=== PATIENT | female | born 1970 | race Caucasian/White ===

== ENCOUNTER 2018-12-17 15:20 | Emergency (ER) | payer SELFPAY ==
[2018-12-17 15:21] VITALS: BP 118/82; PULSE 100; RESP 16; TEMP 36.4; BMI 31.1
--- NOTE | 2018-12-17 15:40 | ED.DEP ---
ED Disposition - Plan for ED Patient: Instructions: ED Bite Tick Abx Tx Prescriptions: Doxycycline 100 mg PO BID #28 capsule Referrals: Nick Roper MD [Primary Care Provider] -
--- NOTE | 2018-12-17 15:43 | ED.VISSUMM ---
- ER Visit Summary Date of Service: 12/17/18 Chief Complaint: Tick bite History of Present Illness: The patient is a 48 F presenting after tick bite. She believes this occurred on Sunday. She states she was mushroom hunting. She later noted a tick on her right shoulder. This was removed. She also noticed a red area right lateral chest wall. She tried squeezing and had no nothing come out. Denies fever or other complaints. Physical Examination: Vitals are stable. Patient is afebrile. Alert no acute distress. HEENT exam is unremarkable. Neck is supple. Lungs are clear and equal bilaterally. Right lateral chest wall small hematoma with surrounding redness. No foreign body palpated. No break in skin Heart is regular rate and rhythm. Extremities right anterior shoulder erythematous lesion Skin is warm and dry. No focal neurologic deficit. Remainder of exam is unremarkable. Emergency Department Course and Treatment: Patient does have an erythematous chinik around the right lateral chest lesion. She is given doxycycline. There is no foreign body palpated. She is advised to follow-up with her primary care physician. Advised return to ED for worsening complaints. Disposition: Discharge home Impression: Tick bite This note was generated with Jipio dictation software. It may contain incorrect words, spelling, and punctuation that were not noted in review of the chart prior to signing ED Disposition - Plan for ED Patient: Instructions: ED Bite Tick Abx Tx Prescriptions: Doxycycline 100 mg PO BID #28 capsule Referrals: Nick Roper MD [Primary Care Provider] -
--- NOTE | 2018-12-17 15:47 | ED.DCSUM_ITS ---
- ER Visit Summary Date of Service: 12/17/18 Chief Complaint: Tick bite History of Present Illness: The patient is a 48 F presenting after tick bite. She believes this occurred on Sunday. She states she was mushroom hunting. She later noted a tick on her right shoulder. This was removed. She also not iced a red area right lateral chest wall. She tried squeezing and had no nothing come out. Denies fever or other complaints. Physical Examination: Vitals are stable. Patient is afebrile. Alert no acute distress. HEENT exam is unremarkable. Neck is supple. Lungs are clear and equal bilaterally. Right lateral chest wall small hematoma with surrounding redness. No foreign body palpated. No break in skin Heart is regular rate and rhythm. Extremities right anterior shoulder erythematous lesion Skin is warm and dry. No focal neurologic deficit. Remainder of exam is unremarkable. Emergency Department Course and Treatment: Patient does have an erythematous chipewwa around the right lateral chest lesion. She is given doxycycline. There is no foreign body palpated. She is advised to follow-up with her primary care physician. Advised return to ED for worsening complaints. Disposition: Discharge home Impression: Tick bite This note was generated with PlayJam dictation software. It may contain incorrect words, spelling, and punctuation that were not noted in review of the chart prior to signing ED Disposition - Plan for ED Patient: Instructions: ED Bite Tick Abx Tx Prescriptions: Doxycycline 100 mg PO BID #28 capsule Referrals: Nick Roper MD [Primary Care Provider] -
[2018-12-17 15:59] VITALS: BP 118/82; PULSE 100; RESP 16; TEMP 36.4; O2SAT 96
== END 2018-12-17 15:57 | disposition home or self-care (01) ==
LOC: ED 15:47
PROVIDERS: Emergency Provider Emergency Medicine; Family Provider Family Medicine; PCP Family Medicine
DX: S40.261A Insect bite (nonvenomous) of right shoulder, initial encounter (principal); Z72.0 Tobacco use; W57.XXXA Bitten or stung by nonvenomous insect and other nonvenomous arthropods, initial encounter; Y93.89 Activity, other specified; Y92.89 Other specified places as the place of occurrence of the external cause; Y99.8 Other external cause status
CPT/HCPCS: 99282

== ENCOUNTER → 2020-02-18 | Outpatient (CLI) | payer MEDICAID, SELFPAY ==
--- NOTE | 2020-02-18 12:15 | EMB_PTH ---
PATIENT: JANIS GARDNER LOC: [facility] U#:[id number] AGE/SX: 49/F ROOM: RE02/18/[address]: Dr. Wade Iniguez MD : 1970 BED: DIS: 02/18/2020 SPEC #: [id number] RECD: 02/19/20 15:00 STATUS: TAYLOR DEENA #: [id number] SOHA: 02/18/20 12:[address]: Wade Iniguez DEPT: SURGICAL PATHOLOGY RECD BY: Antoine Paz ENTERED: 02/19/20 09:20 SP TYPE: ENDOM BX/C ANDERSON DR: Dr. Nick Roper MD Tissues: Endometrium, NOS Procedures: Surgery Specimen Level IV HEADER OPERATION: Endometrial biopsy PRE-OP DIAGNOSIS: 92.4, N92.1 TISSUE SUBMITTED: Endometrial biopsy MICROSCOPIC DIAGNOSIS Endometrial biopsy: Disordered proliferative endometrium to focal simple endometrial hyperplasia without atypia with glandular and stromal breakdown. SJ:jony 02/20/20 MICROSCOPIC DESCRIPTION Slides are reviewed. GROSS DESCRIPTION Received in fixative is one container labeled with the patient's name and designated EM biopsy. The specimen consists of multiple fragments of hemorrhagic soft tissue mixed with blood clot that in aggregate measure 3 x 1.5 x 0.1 cm. The specimen is totally submitted in one cassette. / SHAYLA:jony 02/19/20 TC:5 CPT: 75726
[2020-02-24 00:34] LABS: HPV Reflexed? NOT INDICATED
== END | disposition home or self-care (01) ==
LOC: LABSPEC 15:18
PROVIDERS: PCP Family Medicine; Referring Provider Obstetrics & Gynecology; Visit Provider Obstetrics & Gynecology
DX: N92.1 Excessive and frequent menstruation with irregular cycle (principal); N92.4 Excessive bleeding in the premenopausal period; Z12.4 Encounter for screening for malignant neoplasm of cervix
CPT/HCPCS: 88175; 88305; G0145

== ENCOUNTER 2020-08-09 18:30 | Emergency (ER) | payer MEDICAID, SELFPAY ==
[2020-08-09 18:31] VITALS: BP 129/69; PULSE 109; RESP 17; TEMP 37; O2SAT 94; BMI 34.3
--- NOTE | 2020-08-09 18:43 | US_ITS ---
STUDY: ABDOMINAL ULTRASOUND - RIGHT UPPER QUADRANT REASON FOR VISIT: Female, 49 years old ABD PAIN TECHNIQUE: Ultrasound evaluation of the right upper quadrant was performed with real-time and static holt-scale imaging. TECHNICAL QUALITY: Adequate. COMPARISON: None. FINDINGS: Liver: The liver measures 18.3 cm. There is diffusely increased echogenicity of the liver. The bile ducts are within normal limits. There is hepatic color flow. The direction of portal flow is hepatopetal. Small hypoechoic density measuring 2.5 x 3 x 2.9 cm possibly representing focal fatty sparing. CT or MRI would be helpful for further assessment if clinically warranted Gallbladder: Normal distended gallbladder. The gallbladder wall measures 2 mm. There is a negative sonographic Galdamez''s sign. There is no pericholecystic fluid. There are no gallstones. Common Bile Duct (C.B.D.): The common bile duct measures 5 mm. Pancreas: Suboptimal visualization of the body and tail of the pancreas without definitive evidence for acute pancreatitis or mass.. CT would be useful for further evaluation if indicated. Right Kidney: Normal size of the right kidney. The right kidney measures 10.5 x 5 x 5.5 cm. Normal renal cortex. The right cortex measures 15 cm. There is no demonstrated renal mass or cyst. There is no right hydronephrosis. US/Abdomen Limited IMPRESSION: Diffuse fatty infiltration of liver and probable focal fatty sparing. No evidence for gallstones. Suboptimal visualization of pancreas which may be better assessed with CAT scan Electronically Signed: Nick Bruno MD at 20:25 EST , Service support ,
--- NOTE | 2020-08-09 18:44 | ED.DCSUM_ITS ---
History of Present Illness Chief Complaint: Abd Pain Informant: Patient Narrative: 49-year-old female tells me that yesterday she developed upper abdominal pain that is steadily worsened. She notes decreased p.o. yesterday and none today. She notes decreased urination due to not eating or drinking. She states her bowel movements have been less. She states food makes it worse. She denies any alcohol use. She is a smoker. She states that she had a cyst removed from her ovary in the past. No history of pancreatitis. Pain does not radiate to the back. No chest pain or shortness of breath. No fevers. Past Medical History - Allergies and Home Meds Allergies/Adverse Reactions: Allergies amoxicillin [Amoxicillin] Allergy (Verified 08/09/20 18:30) Swelling Primary Care Physician: Nick Roper MD [Primary Care Provider] - 3-5 Days if not improving Past Medical History: None Surgical History: noncontributory Smoking Status: Current every day smoker Alcohol: None Drugs: None Review of Systems General: Denies: Chills, Fever, Sweats Eyes: Denies: Visual changes - bilaterally, Diplopia ENT: Denies: Rhinorrhea, Sore throat Cardiovascular: Denies: Chest pain, Palpitations Respiratory: Denies: Dyspnea, Cough, Dyspnea on exertion Gastrointestinal: Reports: Abdominal pain, Nausea. Denies: Vomiting, Diarrhea, Melena, Hematochezia Genitourinary: Denies: Dysuria, Hematuria, Frequency Musculoskeletal: Denies: Back pain, Extremity Pain Skin: Denies: Rash, Wounds Neurological: Denies: Headache, Weakness, Numbness Physical Exam Vital Signs/Narrative: Vital Signs Temp Pulse Resp BP Pulse Ox 08/09/20 18:31 98.6 F 109 H 17 129/69 H 94 Inital Vital Signs reviewed: Yes General: Well nourished, Well developed, No Acute Distress Head: Normocephalic, Atraumatic Eyes: Perrl, EOMI ENT: Moist mucous membranes, No rhinorrhea Neck: Supple, Nontender Cardiovascular: Regular rate, Regular rhythm, No murmurs Respiratory: No distress, CTA bilaterally, Chest nontender Abdomen: Soft, Nontender, Nondistended, Normal bowel sounds, Tender - Tender in the epigastrium and left upper quadrant.. Negative for: Guarding, Rebound tenderness Back: Nontender, Normal Inspection Extremities: Nontender, No edema Skin: Normal color, No rash Neurological: Alert, Oriented x3, Cranial nerves II-XII grossly intact, Normal Strength, Normal Sensation Psychological: Normal Mood, - - Pressured speech Diagnostic/Tx/Re-eval Clinical Impression(s) from Imaging Studies Abdomen Ultrasound 08/09/20 18:43 IMPRESSION: Diffuse fatty infiltration of liver and probable focal fatty sparing. No evidence for gallstones. Suboptimal visualization of pancreas which may be better assessed with CAT scan Electronically Signed: Nick Bruno MD at 20:25 EST , Service support , Laboratory Last Values WBC 12.8 K/mm3 (4.4-11.0) H 08/09/20 18:56 RBC 4.77 M/mm3 (4.2-5.4) 08/09/20 18:56 Hgb 14.4 g/dL (12.0-15.0) 08/09/20 18:56 Hct 44.0 % (37-47) 08/09/20 18:56 MCV 92.2 fL (81-99) 08/09/20 18:56 MCH 30.2 pg (27.0-32.0) 08/09/20 18:56 MCHC 32.7 g/dL (32-36) 08/09/20 18:56 RDW Std Deviation 41.1 fl (35.1-43.9) 08/09/20 18:56 RDW Coeff of Pankaj 12.1 % (11.6-14.6) 08/09/20 18:56 Plt Count 263 K/mm3 (150-450) 08/09/20 18:56 MPV 9.4 fl (6.2-12.0) 08/09/20 18:56 Immature Gran % (Auto) 0.200 % (0.0-0.9) 08/09/20 18:56 Neut % (Auto) 73.4 % (47-70) H 08/09/20 18:56 Lymph % (Auto) 16.3 % (19-41) L 08/09/20 18:56 [facility] % (Auto) 8.5 % (0-10) 08/09/20 18:56 Eos % (Auto) 1.3 % (0-5) 08/09/20 18:56 Baso % (Auto) 0.3 % (0-1) 08/09/20 18:56 Absolute Neuts (auto) 9.4 X10^3/uL (2.0-7.7) H 08/09/20 18:56 Absolute Lymphs (auto) 2.08 X10^3/uL (0.83-4.51) 08/09/20 18:56 Nucleated RBC % 0 % (0-5) 08/09/20 18:56 Sodium 138 mmol/L (136-145) 08/09/20 18:56 Potassium 3.6 mmol/L (3.5-5.1) 08/09/20 18:56 Chloride 107 mmol/L (98-107) 08/09/20 18:56 Carbon Dioxide 26.0 mmol/L (21.0-32.0) 08/09/20 18:56 Anion Gap 5 (5-15) 08/09/20 18:56 BUN 8 mg/dL (7-18) 08/09/20 18:56 Creatinine 0.76 mg/dL (0.55-1.02) 08/09/20 18:56 Estim Creat Clear Calc 78.17 ml/min 08/09/20 18:56 Est GFR (MDRD) Af Amer 103 mL/min (>60) 08/09/20 18:56 Est GFR (MDRD) Non-Af 85 mL/min (>60) 08/09/20 18:56 BUN/Creatinine Ratio 10.5 RATIO (10-20) 08/09/20 18:56 Glucose 91 mg/dL (74-106) 08/09/20 18:56 Calcium 8.9 mg/dL (8.5-10.1) 08/09/20 18:56 Total Bilirubin 0.70 mg/dL (0.20-1.00) 08/09/20 18:56 Direct Bilirubin 0.20 mg/dL (0.00-0.30) 08/09/20 18:56 AST 13 U/L (15-37) L 08/09/20 18:56 ALT 35 U/L (13-56) 08/09/20 18:56 Alkaline Phosphatase 84 U/L (45-117) 08/09/20 18:56 Total Protein 7.5 g/dL (6.4-8.2) 08/09/20 18:56 Albumin 3.7 g/dL (3.2-5.0) 08/09/20 18:56 Globulin 3.8 g/dL (2.2-4.2) 08/09/20 18:56 Amylase 35 U/L (25-115) 08/09/20 18:56 Lipase 54 U/L (73-393) L 08/09/20 18:56 Urine Color Yellow (Yellow) 08/09/20 20:36 Urine Clarity Clear (Clear) 08/09/20 20:36 Urine pH 6.0 (5.0 - 8.0) 08/09/20 20:36 Ur Specific [place] 1.020 (1.002-1.030) 08/09/20 20:36 Urine Protein 15 mg/dl (Negative) H 08/09/20 20:36 Urine Glucose (UA) Normal mg/dl (Normal) 08/09/20 20:36 Urine Ketones 5 mg/dl (Negative) H 08/09/20 20:36 Urine Occult Blood Negative /ul (Negative) 08/09/20 20:36 Urine Nitrite Negative (Negative) 08/09/20 20:36 Urine Bilirubin Negative mg/dL (Negative) 08/09/20 20:36 Urine Urobilinogen 1 mg/dl (Normal) H 08/09/20 20:36 Ur Leukocyte Esterase 25 /ul (Negative) H 08/09/20 20:36 Urine RBC 0 SEEN /hpf (0-5) 08/09/20 20:36 Urine WBC 0 SEEN /hpf (0-5) 08/09/20 20:36 Ur Squamous Epith Cells 0 SEEN /hpf (5-10) 08/09/20 20:36 Urine Bacteria 0 SEEN /hpf (None Seen) 08/09/20 20:36 Urine Mucus 0 SEEN /hpf (<or=2+) 08/09/20 20:36 Urine Test Negative Negative 08/09/20 20:36 Clinical Impression(s) from Imaging Studies Abdomen/Pelvis CT 08/09/20 20:41 IMPRESSION: Diffuse diverticular disease of the colon association with acute diverticulitis of the proximal descending colon in association with diffuse ileus pattern. No evidence for peridiverticular abscess Electronically Signed: Nick Bruno MD at 21:34 EST , Service support , ED Disposition - Plan for ED Patient: Disposition: Home or Assisted Living Diagnosis: Diverticulitis large intestine, Acute abdominal pain Instructions: ED Diverticulitis Prescriptions: Ciprofloxacin [Cipro] 500 mg PO BID #20 tab Prescription Printed metroNIDAZOLE [Flagyl] 500 mg PO Q8H #30 tab Prescription Printed Oxycodone HCl/Acetaminophen [Percocet 5/325] 1 tab PO Q6H PRN PRN 3 Days #12 tab PRN Reason: Pain Prescription Printed Ondansetron [Zofran Odt] 4 mg PO Q6H PRN PRN #20 tab PRN Reason: Nausea Prescription Printed Referrals: Nick Roper MD [Primary Care Provider] - 3-5 Days if not improving
[2020-08-09] MEDS: 0.9% Normal Saline 1,000 ML 1000 ML IV (18:54)
[2020-08-09] MEDS: Morphine 4 MG/ML Syringe IV (18:54)
[2020-08-09] MEDS: Ondansetron 4 MG/2 ML Vial IV (18:54)
[2020-08-09 19:06] LABS: Absolute Lymphocyte Count 2.08 X10^3/uL (0.83-4.51); Absolute Neutrophil Count 9.4 X10^3/uL (2.0-7.7); Basophil# 0.04 X10^3/uL; Basophil% 0.3 % (0-1); Eosinophil# 0.16 X10^3/uL; Eosinophils% 1.3 % (0-5); Hemoglobin 14.4 g/dL (12.0-15.0); Lymphocyte # 2.08 X10^3/ul (4.0); Lymphocyte % 16.3 % (19-41); Mean Corp Hgb Conc 32.7 g/dL (32-36); Mean Corpuscular Hgb 30.2 pg (27.0-32.0); Mean Corpuscular Volume 92.2 fL (81-99); Mean Platelet Vol. 9.4 fl (6.2-12.0); Monocyte# 1.09 X10^3/uL; Monocyte% 8.5 % (0-10); NRBC Flagged by Analyzer 0 % (0-5); Neutrophil # 9.35 X10^3/uL (2.7-7.7); Neutrophil % 73.4 % (47-70); Platelet Count 263 K/mm3 (150-450); RBC Distribution Width CV 12.1 % (11.6-14.6); RBC Distribution Width SD 41.1 fl (35.1-43.9); Red Blood Count 4.77 M/mm3 (4.2-5.4); White Blood Count 12.8 K/mm3 (4.4-11.0)
[2020-08-09 19:31] LABS: AST(SGOT) 13 U/L (15-37); Alanine Aminotransfer ALT/SGPT 35 U/L (13-56); Albumin, Serum 3.7 g/dL (3.2-5.0); Alkaline Phosphatase 84 U/L (45-117); Amylase 35 U/L (25-115); Anion Gap 5 (5-15); BUN 8 mg/dL (7-18); BUN/Creat Ratio 10.5 RATIO (10-20); Calcium,Total 8.9 mg/dL (8.5-10.1); Chloride 107 mmol/L (98-107); Creatinine, Serum 0.76 mg/dL (0.55-1.02); EST Glomerular Filtration Rate 85 mL/min (>60); Est Glom Filt Rate - Afr Amer 103 mL/min (>60); Estimated Creatinine Clearance 78.17 ml/min; Globulin 3.8 g/dL (2.2-4.2); Glucose 91 mg/dL (74-106); Lipase 54 U/L (73-393); Potassium 3.6 mmol/L (3.5-5.1); Protein, Total 7.5 g/dL (6.4-8.2); Sodium Level 138 mmol/L (136-145)
[2020-08-09 20:30] VITALS: BP 125/72; PULSE 91; RESP 18; O2SAT 98
--- NOTE | 2020-08-09 20:41 | CT_ITS ---
STUDY: CT ABDOMEN AND PELVIS WITH CONTRAST REASON FOR EXAM: Female, 49 years old. ABDOMINAL PAIN,PANCREAS NOT SEEN ON US RADIATION DOSAGE (If Supplied By Facility): CTDIvol = ( 17.70 ) mGy, DLP = ( 1097.22 ) mGycm TECHNIQUE: Transaxial images were obtained from the dome of the diaphragm to the symphysis pubis without oral contrast. IV 100mL Isovue-370 was administered. Sagittal and coronal images were reconstructed. Individualized dose optimization techniques were used for this CT. COMPARISON: None. FINDINGS: There is minor subsegmental atelectasis in the lower lobes The visualized portions of the heart are within normal limits. Mild nonspecific fatty infiltration of liver without mass or bile duct dilatation.. Normal gallbladder and extrahepatic biliary system. Normal spleen. Normal pancreas. Normal bilateral adrenal glands. Normal right kidney. Normal left kidney. Normal visualized stomach. Nonspecific ileus pattern is noted.. There is scattered diverticular changes throughout the colon. There is mild thickening of the joyce of the proximal descending colon with stranding in the fat which may be consistent with acute diverticulitis The appendix is visualized and appears normal. Minor atherosclerotic changes of the aorta without evidence for aneurysm. Normal inferior vena cava. Normal retroperitoneum. Incompletely distended thick-walled bladder likely of no significance.. Complex cyst in right ovary measuring approximately 5.2 x 2.4 cm which may be further assessed with ultrasound Normal abdominal wall. Lumbar spine demonstrates mild spondylosis. Grade 1 spondylolisthesis at L5-S1. CT/Abdomen/Pelvis W IV Cont ONLY IMPRESSION: Diffuse diverticular disease of the colon association with acute diverticulitis of the proximal descending colon in association with diffuse ileus pattern. No evidence for peridiverticular abscess Electronically Signed: Nick Bruno MD at 21:34 EST , Service support ,
[2020-08-09 20:49] LABS: Bacteria 0 SEEN /hpf (None Seen); Red Blood Cells-Urine 0 SEEN /hpf (0-5); White Blood Cells 0 SEEN /hpf (0-5)
[2020-08-09 21:06] LABS: Internal QC Validated? YES +Cl - CLEAR BKGD; Pregnancy, Urine Negative Negative
[2020-08-09 21:14] LABS: Color, Urine Yellow (Yellow); Glucose, Dipstick Normal (Normal); Ketone-Dipstick 5 mg/dl (Negative); Leukocyte Esterase-Dipstick 25 /ul (Negative); Nitrite-Dipstick Negative (Negative); Occult Blood-Urine Negative /ul (Negative); Protein-Dipstick 15 mg/dl (Negative); Urine Bilirubin Dipstick Negative (Negative); Urine Clarity Clear (Clear); Urine Urobilinogen 1 mg/dl (Normal)
[2020-08-09 21:39] LABS: Mucous, Urine 2+ /hpf (<or=2+); Squamous Epithelial Cells - UA 0-5 SEEN /hpf (5-10)
[2020-08-09] MEDS: HYDROcodone Bitartrate/Apap 5/325 Tablet PO (21:47)
[2020-08-09] MEDS: Ciprofloxacin 500 MG Tablet PO (21:48)
[2020-08-09] MEDS: metroNIDAZOLE 500 MG Tablet PO (21:48)
== END 2020-08-09 21:57 | disposition home or self-care (01) ==
PROVIDERS: Emergency Provider Emergency Medicine; PCP Family Medicine
DX: K57.32 Diverticulitis of large intestine without perforation or abscess without bleeding (principal); F17.200 Nicotine dependence, unspecified, uncomplicated
CPT/HCPCS: 74177; 76705; 80048; 80076; 81001; 81025; 82150; 83690; 85025; 96361; 96374; 96375; 99283; J7030; Q9967; A4216; J2405

== ENCOUNTER 2020-12-19 04:59 | Emergency (ER) | payer MEDICAID, SELFPAY ==
[2020-12-19 05:01] VITALS: BP 147/65; PULSE 97; RESP 15; TEMP 36.2; O2SAT 95; BMI 34.3
--- NOTE | 2020-12-19 05:05 | EDS_ITS ---
HPI History of Present Illness HPI Narrative: Patient presents with right knee pain that has been getting progressively worse over the past 2 days. Patient states the pain is gradually gotten worse. Patient admits to some swelling over her right knee. Patient describes the pain as sharp, patient states the pain is worse with weightbearing. Patient states the pain is better with rest. Patient denies any paresthesias or weakness. Patient denies any recent trauma or injury. Chief Complaint: Lower Extremity Injury Informant: patient Onset/Context/Timing Onset: Days (2) Context: Gradual Onset Timing: Continuous Quality of Pain: Sharp and Aching Location: Right knee Worsened by: Weightbearing Relieved by: Rest Associated Symptoms Associated Symptoms: Negative for Parasthesia and Weakness PFSH PFSH Home Medications doxycycline monohydrate 100 mg PO BID #28 capsule 12/17/18 [Rx Last Taken Unknown] ciprofloxacin HCl 500 mg PO BID #20 tab 08/09/20 [Rx Last Taken Unknown] metronidazole 500 mg PO Q8H #30 tab 08/09/20 [Rx Last Taken Unknown] ondansetron 4 mg PO Q6H PRN PRN #20 tab 08/09/20 [Rx Last Taken Unknown] hydrocodone-acetaminophen 1 tab PO Q6H PRN PRN 3 Days #10 tablet 12/19/20 [Rx Last Taken Unknown] Allergy/AdvReac Type Severity Reaction Status Date / Time amoxicillin [Amoxicillin] Allergy Swelling Verified 12/19/20 05:04 Surgical History (Updated 12/19/20 @ 05:[address] Jesse Lee DO) History of arthroscopy of right knee History of tubal ligation Social History (Updated 12/19/20 @ 05:[address] Jesse Lee DO) Smoking Status: Current every day smoker alcohol intake: current alcohol intake frequency: holidays/special occasions only substance use type: marijuana ROS ROS ED Constitutional Constitutional ED: Denies chills or fever(s) Eyes Eyes: Denies blurry vision or change in vision ENT ENT ED: Denies rhinorrhea or sore throat Cardiovascular Cardiovascular: Denies chest pain or palpitations Respiratory/Chest Respiratory/Chest: Reports cough; Denies dyspnea Gastrointestinal Gastrointestinal: Denies nausea or vomiting Genitourinary Genitourinary ED: Denies dysuria or hematuria Musculoskeletal Musculoskeletal: Denies back pain or neck pain Integumentary Denies abscess or rash Neurologic Neurologic: Denies headache(s) or weakness Allergic/Immunologic Allergic/Immunologic ED: Denies mouth swelling or urticaria EXAM Physical Exam Const Vital Signs: 12/19/20 05:01 Temperature 97.2 F L Temperature Source Temporal Pulse Rate 97 Respiratory Rate 15 Blood Pressure 147/65 H Blood Pressure Mean 92 Pulse Ox 95 Oxygen Delivery Method Room Air Positive well nourished, well developed and obese General Appearance ED: well developed Nutritional Appearance: obese HEENT Reports moist mucous membranes normocephalic Extremity Right Lower Extremity: knee joint inspection (There is edema and effusion of the right knee), palpation (There is diffuse tenderness over the anterior aspect of the right knee. There is no tenderness along the joint line. There is no bony crepitance or step-off.), ROM (Range of motion was limited in all motions of the right knee secondary to pain.), neurovascular exam (Pedal pulses are equal bilaterally. There are no sensory deficits noted. Strength is 5/5 in extension of the right knee.) and special tests Knee Special Tests - Right: Anterior Sb test: Negative, Valgus stress test: Negative and Varus stress test: Negative Neuro oriented x3, CN's II-XII intact bilaterally and no sensory deficits noted Sensorium / Orientation: alert Motor Exam: strength 5/5 throughout Psych mental status grossly normal MDM MDM MDM Narrative Medical decision making narrative: X-rays of the right knee were obtained. There are 4 views. On my interpretation, there is no acute fracture. There is no dislocation. There is moderate to large effusion. Radiologist also interpreted the x-rays and agrees. Patient was given a dose of [place] here. Patient was given a prescription for a short course of [place]. Patient was given a knee immobilizer. Patient was instructed to use her crutches as needed. Patient was instructed to follow-up with her primary care physician in 3 to 5 days. Patient was also given referral for orthopedic follow-up. Patient understood and was agreeable with the plan. All questions were answered. Radiography Diagnostic Testing: Radiology Impression Knee X-Ray 12/19/20 05:21 IMPRESSION: Moderate to large joint effusion. Degenerative change. No visualized fracture. Electronically Signed: Sharmila Bateman MD at 6:09 EDT Tel , Service support , Discharge Plan Triage Chief Complaint: Lower Extremity Injury ED Provider: Jesse Lee Dx/Rx/DC Orders Clinical Impression: Effusion of right knee joint Instructions: ED Knee Pain of Uncertain Cause, ED Knee Effusion Prescriptions: New hydrocodone-acetaminophen [hydrocodone-acetaminophen] 1 TABLET tablet 1 tab PO Q6H PRN PRN (Reason: Pain) 3 Days Qty: 10 RF: 0 No Action doxycycline monohydrate 100 MG capsule 100 mg PO BID Qty: 28 RF: 0 metronidazole 500 MG tablet 500 mg PO Q8H Qty: 30 RF: 0 ciprofloxacin HCl 500 MG tablet 500 mg PO BID Qty: 20 RF: 0 ondansetron 4 MG tablet 4 mg PO Q6H PRN PRN (Reason: Nausea) Qty: 20 RF: 0 Primary Care Provider: Nick Roper Referrals: Nick Roper MD [Primary Care Provider] - 3-5 Days Kiran Barbour MD [STAFF PHYSICIAN] - 5-7 Days Disposition Disposition: Home, self care
--- NOTE | 2020-12-19 05:21 | RAD_ITS ---
STUDY: X-RAY - RIGHT KNEE REASON FOR EXAM: Female, 50 years old. Injury/Pain TECHNIQUE: 4 view(s) of the knee. COMPARISON: None. FINDINGS: There is demineralization of the visualized distal femur. There is demineralization of the tibia and fibula. Normal proximal tibiofibular articulation. There is moderate degenerative arthrosis of the medial femorotibial compartment with moderate joint space narrowing. There is mild degenerative arthrosis of the lateral femorotibial compartment. There is mild degenerative arthrosis of the patellofemoral articulation. There is a moderate to large volume joint effusion. Superficial soft tissue edema. RAD/Knee 4 or More Views IMPRESSION: Moderate to large joint effusion. Degenerative change. No visualized fracture. Electronically Signed: Sharmila Bateman MD at 6:09 EDT Tel , Service support ,
[2020-12-19] MEDS: HYDROcodone Bitartrate/Apap 5/325 Tablet PO (05:38)
[2020-12-19 06:41] VITALS: BP 147/65; PULSE 97; RESP 15; O2SAT 95
== END 2020-12-19 07:32 | disposition home or self-care (01) ==
PROVIDERS: Emergency Provider Emergency Medicine; PCP Family Medicine
DX: M25.461 Effusion, right knee (principal); F17.200 Nicotine dependence, unspecified, uncomplicated
CPT/HCPCS: 73564; 99283

== ENCOUNTER → 2021-05-06 | Outpatient (CLI) | payer MEDICAID, SELFPAY | END | disposition home or self-care (01) | LOC: LABSPEC 16:18 | PROVIDERS: PCP Family Medicine; Referring Provider Physician Assistant Surgical; Visit Provider Physician Assistant Surgical | DX: Z20.822 Contact with and (suspected) exposure to COVID-19 (principal) | CPT/HCPCS: 87635; U0005; U0003 ==

== ENCOUNTER → 2021-08-10 13:21 | Outpatient (CLI) | payer MEDICAID, SELFPAY ==
--- NOTE | 2021-08-10 13:24 | BI_ITS ---
MAMMOGRAPHY - BILATERAL SCREENING 3-D TOMOSYNTHESIS REASON FOR EXAM: Female, 50 years old. SCREENING PERTINENT HISTORY: No significant family history. TECHNIQUE: 2-D mammograms and 3-D Tomosynthesis of the breast (s) were performed. CAD was performed. COMPARISON: 07/26/2015 FINDINGS: The breast composition is composed of scattered fibroglandular density. Scattered benign calcifications are seen. No dense spiculated masses or suspicious microcalcifications are identified. No architectural distortion is identified. There is no skin thickening or retraction. There has been no significant change since the prior study. BI/SCRN MAMM (CAD)W/MARIANA BILAT IMPRESSION: No mammographic signs of malignancy. Routine yearly mammograms recommended. ASSESSMENT CATEGORY: BIRADS Category 1: Negative. A letter regarding these results will be sent to the patient by the facility within 30 days. FOLLOW UP RECOMMENDATION: Yearly follow up mammogram recommended. (A) Approximately 10% of breast cancers are not detected by mammography. A normal mammogram should not delay biopsy of a clinically suspicious abnormality. Electronically Signed: David Harp MD at 15:27 EST Tel , Service support ,
== END ==
PROVIDERS: PCP Family Medicine; Visit Provider Obstetrics & Gynecology
DX: Z12.31 Encounter for screening mammogram for malignant neoplasm of breast (principal)
CPT/HCPCS: 77063; 77067

== ENCOUNTER → 2022-04-13 | Outpatient (CLI) | payer MEDICAID, SELFPAY ==
[2022-04-13 15:14] LABS: Absolute Lymphocyte Count 2.64 X10^3/uL (0.83-4.51); Absolute Neutrophil Count 3.7 X10^3/uL (2.0-7.7); Basophil# 0.04 X10^3/uL; Basophil% 0.6 % (0-1); Eosinophil# 0.23 X10^3/uL; Eosinophils% 3.2 % (0-5); Hemoglobin 15.1 g/dL (12.0-15.0); Lymphocyte # 2.64 X10^3/ul (0.83-4.51); Lymphocyte % 36.8 % (19-41); Mean Corp Hgb Conc 33.6 g/dL (32-36); Mean Corpuscular Hgb 30.7 pg (27.0-32.0); Mean Corpuscular Volume 91.5 fL (81-99); Mean Platelet Vol. 10.1 fl (6.2-12.0); Monocyte# 0.55 X10^3/uL; Monocyte% 7.7 % (0-10); NRBC Flagged by Analyzer 0 % (0-5); Neutrophil % 51.4 % (47-70); Platelet Count 286 K/mm3 (150-450); RBC Distribution Width CV 11.9 % (11.6-14.6); RBC Distribution Width SD 39.8 fl (35.1-43.9); Red Blood Count 4.92 M/mm3 (4.2-5.4); White Blood Count 7.2 K/mm3 (4.4-11.0)
[2022-04-13 15:33] LABS: Follicle Stimulating Hormone 32.1 mIU/mL; Luteinizing Hormone 17.2 mIU/mL; T4 Free Direct 0.91 ng/dL (0.76-1.46); Thyroid Stim Hormone (TSH) 1.23 uIU/mL (0.358-3.74)
== END | disposition home or self-care (01) ==
LOC: WOBLAB 14:06
PROVIDERS: PCP Family Medicine; Visit Provider Obstetrics & Gynecology
DX: N93.9 Abnormal uterine and vaginal bleeding, unspecified (principal)
CPT/HCPCS: 36415; 83001; 83002; 84439; 84443; 85025

== ENCOUNTER 2022-05-09 09:25 | Day surgery (SDC) | payer MEDICAID, SELFPAY ==
[2022-05-09] VITALS (7 sets, daily range): BP systolic 106–133; BP diastolic 68–84; PULSE 62–86; RESP 16–20; TEMP 36.4–36.6; O2SAT 92–98; BMI 33.3
--- NOTE | 2022-05-09 09:36 | PCM.HP.BLA ---
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 04/14/22 [History Confirmed 04/14/22] Is last menstrual period known: No Post menopausal: Yes Patient : No PFSH Medical History?(Updated 04/14/22 @ 14:[address] Eddy Mason MD) Anxiety Diverticulosis Gastritis due to nonsteroidal anti-inflammatory drug Osteoarthritis Surgical History? History of arthroscopy of right knee History of tubal ligation Family History?(Updated 04/14/22 @ 14:17 by Salma Watson) Father DiabetesMother Colon cancer Heart disease Myocardial infarction Social History? Smoking Status:? Current every day smoker alcohol intake:? current alcohol intake frequency: holidays/special occasions only substance use type:? marijuana HPI HPI HPI: 51-year-old female being referred by Dr. Nick Roper because of blood in her stool and a written copy my surgical consult recommendations will return to him.? Patient also has indigestion and heartburn for which she routinely uses buzp-wrb-nvmlemw medicine.? She states that colonoscopy at age 14 but none since.? She states maybe an upper endoscopy 7 or 8 years ago for her indigestion.? She has been having episodes of spontaneous bright red blood per rectum for at least the past 2 years.? She has an aunt who had colon cancer and her mother had uterine cancer.? The patient's also been having some intermittent vaginal spotting.? She is being evaluated by Dr. Walter Fernandez COUNTER WEIGHER for that condition.? She has not had any abdominal pain.? She is a chronic lifelong cigarette smoker and continues to smoke.? As of April 13, 2022 white count was 7.2 with a hemoglobin 15.1 hematocrit 45 platelet count 286,000 and a normal differential. She is not on any anticoagulant.? She does take acetaminophen on a as needed basis. ROS General General: No weight change, appetite, fatigue, colon cancer, breast cancer or weakness HEENT HEENT: No difficulty swallowing, eye injury, eye surgery, swollen glands or hoarseness Endo Endocrine: No thyroid disease, diabetes mellitus, thyroid cancer, Hair loss, heat intolerance or cold intolerance Musc Musculoskeletal: Yes arthritis; No back problems, rheumatoid arthritis, gout or joint pain Cardio Cardiovascular: No murmur, pacemaker, heart disease, atrial fibrillation, high blood pressure, heart attack, heart stent, palpitations, shortness of breat with exertion or chest pain Psych Psychiatric: Yes anxiety; No depression or hearing voices Resp Respiratory: Yes shortness of breath, No sleep apnea, No cough, No COPD, No asthma, No emphysema and No wheezing Gastro Gastrointestinal: No abdominal pain, No nausea or vomiting, No diarrhea, No constipation, Yes blood in stool, Yes acid reflux, Yes hemorrhoids, No ulcers, No gallbladder problem and No black,tarry stools Alfredo Hematologic: No blood thinners, No blood disorders, No bleeding, No anemia and No blood clots Neuro Neurologic: No weakness Exam Const General: cooperative, healthy appearing and comfortable [facility] Head: normal to inspection Eyes General: appearance normal, both eyes and all related structures Neck Neck: normal visual inspection Chest Other: Increased anterior posterior diameter Resp Effort & Inspection: normal respiratory effort Auscultation: clear to auscultation bilaterally Cardio Rate: regular rate Rhythm: regular rhythm GI Other: Soft, overweight, nontender, no hepatosplenomegaly or masses noted Musc Cervical Spine: normal cervical lordosis Skin General: no rashes or lesions noted Neuro General: patient alert, patient awake and patient oriented x3 Extrem General: no calf tenderness Psych Appearance: grossly normal Assessment and Plan Assessment and Plan (1) Heartburn: ?Status:?Acute (2) Bright red blood per rectum: ?Status:?Acute ? ? ? Orders: Orders Colonoscopy Today K62.5 - Hemorrhage of anus and rectum, Z80.0 - Family history of malignant neoplasm of digestive organs ? EGD Today ? ? Plan With the patient's heartburn and utilization of zczc-wtl-eovmucn medicines I propose for her a combined esophagogastroduodenoscopy with possible biopsy and because of the rectal bleeding colonoscopy with possible biopsy or polypectomy as indicated.? She is aware of the technique, benefit, risk, alternatives.? She has had an opportunity to ask and have questions answered.? She reminds me that she is undergoing PAPER LATCHER evaluation for vaginal spotting as well. She is aware that I will be out of town.? We will schedule and expedite her care upon my return.? I appreciate the opportunity of assisting with her surgical care. It is of additional note that having seen her hemoglobin I instructed her that she was and not anemic but have significant concerns about her ongoing cigarette use.? I have strongly encouraged her to cease.? I have described to her some of the adverse consequences of her continuing. Copy: Dr. Nick Mason M.D., F.A.C.S. I have re-examined the patient. There are no clinical changes since date of exam. Eddy Mason M.D., F.A.C.S.
[2022-05-09] MEDS: Lactated Ringers 1,000 ML 15 ML IV (09:53)
--- NOTE | 2022-05-09 10:30 | EGD_PTH ---
PATIENT: JANIS GARDNER LOC: EN U#:[id number] AGE/SX: 51/F ROOM: RE05/09/[address]: Dr. Eddy Mason MD : 1970 BED: DIS: 05/09/2022 SPEC #: [id number] RECD: 05/09/22 11:51 STATUS: TAYLOR REJim #: [id number] SOHA: 05/09/22 10:[address]: Eddy Mason DEPT: SURGICAL PATHOLOGY RECD BY: Magnolia Jacinto ENTERED: 05/09/22 12:37 SP TYPE: EGD BIOPSY OT DR: Dr. Nick Roper MD Tissues: A - Duodenum, NOS B - Gastric mucous membrane C - Stomach, NOS Procedures: Special Stain Group II Surgery Specimen Level IV Alcian Blue/PAS (control) HEADER OPERATION: Colonoscopy, EGD with biopsy ([facility]) PRE-OP DIAGNOSIS: Heartburn, bright red blood per rectum TISSUE SUBMITTED: A - Duodenum biopsy, B - Antrum biopsy, C - Gastroesophageal junction biopsy MICROSCOPIC DIAGNOSIS A. Duodenum, biopsy: A fragment of duodenal mucosa with mild congestion, hemorrhage, gastric metaplasia, acute and chronic inflammation. B. Antrum, biopsy: Mild gastritis. See microscopic description and comment. C. Gastroesophageal junction, biopsy: Fragments of gastroesophageal mucosa with chronic inflammation. Intestinal metaplasia (goblet cell metaplasia) not identified. See comment. SJ:jony 05/10/2022 COMMENT B. The results of immunohistochemistry for Helicobacter pylori will be reported separately ([id number]). C. Alcian blue/PAS stain with matched control is used in the evaluation of the specimen. This case has been reviewed in consultation with Dr. Rogers who concurs with the above diagnosis. MICROSCOPIC DESCRIPTION Slides are reviewed. B. The specimen shows fragments of gastric mucosa with chronic inflammatory cell infiltrates in the lamina propria consisting of lymphocytes and plasma cells, consistent with mild chronic gastritis. GROSS DESCRIPTION A - Received in fixative is one container labeled with the patient's name and designated duodenum biopsy. The specimen consists of two irregular fragments of light cervantes soft tissue that in aggregate measure 0.5 x 0.3 x 0.1 cm. The specimen is totally submitted in one cassette. B - Received in fixative is one container labeled with the patient's name and designated antrum biopsy. The specimen consists of one irregular fragment of light cervantes soft tissue that measures 0.4 x 0.3 x 0.1 cm. The specimen is totally submitted in one cassette. C - Received in fixative is one container labeled with the patient's name and designated GE junction biopsy. The specimen consists of multiple irregular fragments of light cervantes soft tissue that in aggregate measure 1 x 0.3 x 0.1 cm. The specimen is totally submitted in one cassette. / SJ:rg 05/09/2022 TC:3 CPT: 89895 x3, 56568
--- NOTE | 2022-05-09 10:30 | IMM_PTH ---
PATIENT: JANIS GARDNER LOC: EN U#:[id number] AGE/SX: 51/F ROOM: RE05/09/[address]: Dr. Eddy Mason MD : 1970 BED: DIS: 05/09/2022 SPEC #: [id number] RECD: 05/09/22 13:33 STATUS: TAYLOR REQ #: [id number] SOHA: 05/09/22 10:[address]: Eddy Mason DEPT: IMMUNOHISTOCHEMISTRY RECD BY: Linda Rhodes ENTERED: 05/09/22 13:34 SP TYPE: IMMUNO OTHR DR: Dr. Nick Roper MD Tissues: B - Stomach, NOS Procedures: H Pylori (initial) PHYSICIAN & INSTITUTION [place] [id number] SPECIMEN INFORMATION: Tissue Source: B ? Antral biopsy Clinical Info: Heartburn, bright red blood per rectum Specimen Number: [id number] CPT code: 81838 METHODOLOGY: Deparaffinized sections of prefer/formalin-fixed tissue or PAP/DQ stained slides are incubated with monoclonal/polyclonal antibodies/oligonucleotide probes. Localization is made via biotin free immunoperoxidase method. Appropriate controls are performed and reacted as expected. Results on target cell population are indicated in the following table: RESULTS: ANTIBODY / CLONE RESULT Block B H Pylori (polyclonal) negative These tests were developed and their performance characteristics determined by [facility]. They may not have been cleared or approved by the U.S. Food and Drug Administration. The FDA has determined that such clearance or approval is not necessary. The above immunohistochemical/dualISH markers are ordered and reviewed by the Pathologist. INTERPRETATION: B. Antral biopsy: Negative for Helicobacter pylori organisms. SJ:jony 05/10/2022
--- NOTE | 2022-05-09 11:41 | OP.EGD_ITS ---
Patient Name: Mounika Larose Procedure Date: 05/09/2022 11:04 AM Date of : 1970 Age: 51 Procedure: Upper GI endoscopy Indications: Suspected gastro-esophageal reflux disease Providers: Eddy Mason MD Referring MD: Eddy Mason MD Medicines: See the Anesthesia note for documentation of the administered medications Complications: No immediate complications. Procedure: Pre-Anesthesia Assessment: - Prior to the procedure, a History and Physical was performed, and patient medications and allergies were reviewed. The patient's tolerance of previous anesthesia was also reviewed. The risks and benefits of the procedure and the sedation options and risks were discussed with the patient. All questions were answered, and informed consent was obtained. Prior Anticoagulants: The patient has taken no previous anticoagulant or antiplatelet agents. ASA Grade Assessment: II - A patient with mild systemic disease. After reviewing the risks and benefits, the patient was deemed in satisfactory condition to undergo the procedure. After obtaining informed consent, the endoscope was passed under direct vision. Throughout the procedure, the patient's blood pressure, pulse, and oxygen saturations were monitored continuously. The colonoscope was introduced through the mouth, and advanced to the second part of duodenum. The upper GI endoscopy was accomplished without difficulty. The patient tolerated the procedure well. Scope In: 11:12:29 AM Scope Out: 11:19:37 AM Total Procedure Duration Time 0 hours 7 minutes 8 seconds Findings: LA Grade A (one or more mucosal breaks less than 5 mm, not extending between tops of 2 mucosal folds) esophagitis with no bleeding was found 38 cm from the incisors. Biopsies were taken with a cold forceps for histology. The Z-line was irregular and was found 38 cm from the incisors. A small hiatal hernia was present. Diffuse mildly erythematous mucosa without bleeding was found in the gastric antrum. Biopsies were taken with a cold forceps for histology. Localized moderate inflammation characterized by congestion (edema) was found in the duodenal bulb. Biopsies were taken with a cold forceps for histology. Impression: - LA Grade A reflux esophagitis. Biopsied. - Z-line irregular, 38 cm from the incisors. - Small hiatal hernia. - Erythematous mucosa in the antrum. Biopsied. - Duodenitis. Biopsied. Recommendation: - Discharge patient to home. - Resume previous diet. - Continue present medications. - Use Prilosec (omeprazole) 40 mg PO daily. - Telephone my office for pathology results in 1 week. Procedure Code(s): --- Professional --- 33947, Esophagogastroduodenoscopy, flexible, transoral; with biopsy, single or multiple Diagnosis Code(s): --- Professional --- K21.0, Gastro-esophageal reflux disease with esophagitis K22.8, Other specified diseases of esophagus K44.9, Diaphragmatic hernia without obstruction or gangrene K31.89, Other diseases of stomach and duodenum K29.80, Duodenitis without bleeding CPT copyright 2017 [employer]. All rights reserved. The codes documented in this report are preliminary and upon freight car repairer review may be revised to meet current compliance requirements. Eddy Mason MD 05/09/2022 11:40:24 AM This report has been signed electronically. Number of Addenda: 0 Note Initiated On: 05/09/2022 11:04 AM
--- NOTE | 2022-05-09 11:42 | OP.CCLET_ITS ---
05/09/2022 Nick Roper MD Re : Upper GI endoscopy procedure for Mounika Larose Dear Dr. Roper This procedure was performed on Monday, May 09, 2022. My impressions and recommendations are as follows: Impressions : - LA Grade A reflux esophagitis. Biopsied. - Z-line irregular, 38 cm from the incisors. - Small hiatal hernia. - Erythematous mucosa in the antrum. Biopsied. - Duodenitis. Biopsied. Recommendations : - Discharge patient to home. - Resume previous diet. - Continue present medications. - Use Prilosec (omeprazole) 40 mg PO daily. - Telephone my office for pathology results in 1 week. My findings are described in the full procedure note, which is enclosed. If I can be of further assistance, please feel free to contact me at Doctor phone number(s): Work: . Sincerely, Eddy Mason MD 05/09/2022 11:40:24 AM This report has been signed electronically.
--- NOTE | 2022-05-09 11:47 | OP.COLON_ITS ---
Patient Name: Mounika Larose Procedure Date: 05/09/2022 11:19 AM Date of : 1970 Age: 51 Procedure: Colonoscopy Indications: Rectal bleeding Providers: Eddy Mason MD Referring MD: Eddy Mason MD Medicines: See the Anesthesia note for documentation of the administered medications Patient Profile: Last Colonoscopy: more than 10 years ago. Complications: No immediate complications. Procedure: Pre-Anesthesia Assessment: - Prior to the procedure, a History and Physical was performed, and patient medications and allergies were reviewed. The patient's tolerance of previous anesthesia was also reviewed. The risks and benefits of the procedure and the sedation options and risks were discussed with the patient. All questions were answered, and informed consent was obtained. Prior Anticoagulants: The patient has taken no previous anticoagulant or antiplatelet agents. ASA Grade Assessment: II - A patient with mild systemic disease. After reviewing the risks and benefits, the patient was deemed in satisfactory condition to undergo the procedure. After I obtained informed consent, the scope was passed under direct vision. Throughout the procedure, the patient's blood pressure, pulse, and oxygen saturations were monitored continuously. The colonoscope was introduced through the anus and advanced to the cecum, identified by appendiceal orifice and ileocecal valve. The colonoscopy was performed without difficulty. The patient tolerated the procedure well. The quality of the bowel preparation was fair. The ileocecal valve and the appendiceal orifice were photographed. Scope In: 11:21:09 AM Scope Withdrawal Time 0 hours 7 minutes 37 seconds Scope Out: 11:34:14 AM Total Procedure Duration Time 0 hours 13 minutes 5 seconds Findings: The digital rectal exam findings include non-thrombosed external hemorrhoids, non-thrombosed internal hemorrhoids and internal hemorrhoids that prolapse with straining, but require manual replacement into the anal canal (Grade III). Multiple diverticula were found in the entire colon. Impression: - Preparation of the colon was fair. - Non-thrombosed external hemorrhoids, non-thrombosed internal hemorrhoids and internal hemorrhoids that prolapse with straining, but require manual replacement into the anal canal (Grade III) found on digital rectal exam. - Diverticulosis in the entire examined colon. - No specimens collected. Rectal bleeding likely secondary to significant internal hemorrhoids with a lesser degree of external hemorrhoid component. Recommendation: - Discharge patient to home. - Resume previous diet. - Continue present medications. - Repeat colonoscopy in 10 years for screening purposes. - Return to my office in 1 week to discuss surgical treatment options for internal hemorrhoids Procedure Code(s): --- Professional --- 90163, Colonoscopy, flexible; diagnostic, including collection of specimen(s) by brushing or washing, when performed (separate procedure) Diagnosis Code(s): --- Professional --- K64.2, Third degree hemorrhoids K64.4, Residual hemorrhoidal skin tags K62.5, Hemorrhage of anus and rectum K57.30, Diverticulosis of large intestine without perforation or abscess without bleeding CPT copyright 2017 [employer]. All rights reserved. The codes documented in this report are preliminary and upon instructor modeling review may be revised to meet current compliance requirements. Eddy Mason MD 05/09/2022 11:46:18 AM This report has been signed electronically. Number of Addenda: 0 Note Initiated On: 05/09/2022 11:19 AM
--- NOTE | 2022-05-09 11:47 | OP.CCLET_ITS ---
05/09/2022 Nick Roper MD Re : Colonoscopy procedure for Mounika Larose Dear Dr. Roper This procedure was performed on Monday, May 09, 2022. My impressions and recommendations are as follows: Impressions : - Preparation of the colon was fair. - Non-thrombosed external hemorrhoids, non-thrombosed internal hemorrhoids and internal hemorrhoids that prolapse with straining, but require manual replacement into the anal canal (Grade III) found on digital rectal exam. - Diverticulosis in the entire examined colon. - No specimens collected. Rectal bleeding likely secondary to significant internal hemorrhoids with a lesser degree of external hemorrhoid component. Recommendations : - Discharge patient to home. - Resume previous diet. - Continue present medications. - Repeat colonoscopy in 10 years for screening purposes. - Return to my office in 1 week to discuss surgical treatment options for internal hemorrhoids My findings are described in the full procedure note, which is enclosed. If I can be of further assistance, please feel free to contact me at Doctor phone number(s): Work: . Sincerely, Eddy Mason MD 05/09/2022 11:46:18 AM This report has been signed electronically.
== END 2022-05-09 12:31 | disposition home or self-care (01) ==
LOC: EN 09:27 → AC 09:28
PROVIDERS: PCP Family Medicine; Referring Provider Surgery; Visit Provider Surgery
PROC: 0DJD8ZZ Inspection of Lower Intestinal Tract, Via Natural or Artificial Opening Endoscopic (ICD-10-PCS; CPT 45378; principal; 2022-05-09 10:25)
DX: K62.5 Hemorrhage of anus and rectum (principal); K57.30 Diverticulosis of large intestine without perforation or abscess without bleeding; K21.00 Gastro-esophageal reflux disease with esophagitis, without bleeding; K29.80 Duodenitis without bleeding; K44.9 Diaphragmatic hernia without obstruction or gangrene; K64.4 Residual hemorrhoidal skin tags; K64.2 Third degree hemorrhoids; K22.89 Other specified disease of esophagus; K31.89 Other diseases of stomach and duodenum; F41.9 Anxiety disorder, unspecified; M19.90 Unspecified osteoarthritis, unspecified site; F12.90 Cannabis use, unspecified, uncomplicated; Z79.899 Other long term (current) drug therapy; Z87.19 Personal history of other diseases of the digestive system; Z78.0 Asymptomatic menopausal state; Z80.0 Family history of malignant neoplasm of digestive organs; F17.210 Nicotine dependence, cigarettes, uncomplicated
CPT/HCPCS: 45378; 43239; 88305; 88313; 88342; J7120; J2405

== ENCOUNTER → 2022-06-12 | Outpatient (CLI) | payer MEDICAID, SELFPAY ==
--- NOTE | 2022-06-12 12:11 | EKG12_ITS ---
Test Reason : PREOP Blood Pressure : / mmHG Vent. Rate : 092 BPM Atrial Rate : 092 BPM P-R Int : 126 ms QRS Dur : 084 ms QT Int : 356 ms P-R-T Axes : 051 089 033 degrees QTc Int : 440 ms Normal sinus rhythm Normal ECG Confirmed by JACKELINE GUARDADO, KASH ([id number]), rewrite editor VALDEMAR LANGE ([id number]) on 06/13/2022 1:16:33 PM Referred By: Eddy Mason Confirmed By:KASH VIVEROS MD
[2022-06-12 13:26] LABS: Hemoglobin 15.6 g/dL (12.0-15.0); Mean Corp Hgb Conc 33.9 g/dL (32-36); Mean Corpuscular Hgb 30.6 pg (27.0-32.0); Mean Corpuscular Volume 90.4 fL (81-99); Mean Platelet Vol. 9.8 fl (6.2-12.0); Platelet Count 260 K/mm3 (150-450); RBC Distribution Width CV 11.9 % (11.6-14.6); RBC Distribution Width SD 39.8 fl (35.1-43.9); Red Blood Count 5.09 M/mm3 (4.2-5.4); White Blood Count 8.3 K/mm3 (4.4-11.0)
[2022-06-12 13:51] LABS: Anion Gap 5 (5-15); BUN 12 mg/dL (7-18); BUN/Creat Ratio 17.5 RATIO (10-20); Calcium,Total 9.1 mg/dL (8.5-10.1); Chloride 105 mmol/L (98-107); Creatinine, Serum 0.68 mg/dL (0.55-1.02); EST Glomerular Filtration Rate 96 mL/min (>60); Est Glom Filt Rate - Afr Amer 117 mL/min (>60); Glucose 90 mg/dL (74-106); Potassium 4.1 mmol/L (3.5-5.1); Sodium Level 137 mmol/L (136-145)
== END | disposition home or self-care (01) ==
LOC: AC 06-19 06:39 → PAT 07-12 13:35
PROVIDERS: PCP Family Medicine; Referring Provider Surgery; Visit Provider Surgery
DX: Z01.818 Encounter for other preprocedural examination (principal); Z01.810 Encounter for preprocedural cardiovascular examination
CPT/HCPCS: 36415; 80048; 85027; 87428; 93005

== ENCOUNTER 2022-11-02 07:27 | Day surgery (SDC) | payer MEDICAID, SELFPAY ==
[2022-11-02 07:53] VITALS: BP 107/66; PULSE 105; RESP 20; TEMP 36.1; O2SAT 94; BMI 33.5
[2022-11-02] MEDS: Lactated Ringers 1,000 ML 15 ML IV (08:08)
--- NOTE | 2022-11-02 08:12 | DCINST_ITS ---
Discharge Instructions Procedure Rectal Surgery Diet Discharge Diet: Light diet - advance as tolerated Activity Discharge Activity: Return to Normal Activity (As tolerated. No driving or heavy lifting while discomfort persists.), May Not Drive (while you are taking narcotic pain medications. Do not drive, work with heavy equipment or sign legal documents for 24 hours after your surgery.), May Shower and May Take a Tub Bath Dressing / Incision Additional Dressing/Incision Instructions:: Do not drive or work with heavy equipment or sign legal documents for 24 hours. Be aware that pain medications may cause nausea. You should typically eat light foods as you take your pain medications. Avoiding spicy or constipating foods like cheese would be advised. You may apply for Dibucaine ointment as needed for comfort. Assure good hygiene after moving your bowels with wiping pads or bathing or showering. A hygiene pad can be utilized to assist with mucus or bloody drainage I recommend daily fiber supplementation heaping tablespoon of Metamucil, Citrucel, FiberCon, Benefiber or generic with water. Mineral oil 30 cc (1 ounce) daily mixed in juice or food for at least the first week Sitz bath and warm soapy water for approximately 20 minutes a time as needed for comfort Follow Up Care Please Follow Up With: Eddy Mason MD When: Please call [phone] for surgical follow-up in approximately 3 weeks Test Results: Test results from this visit will be discussed in further detail at your follow- up appointment, if applicable. Discharge Plan Admission Attending Provider: Eddy Mason Primary Care Provider: Nick Roper Discharge Orders/Prescriptions Prescriptions: No Action albuterol sulfate 90 mcg/actuation HFA aerosol inhaler 2 puff inhalation Q6H PRN (Reason: ASTHMA) Stiolto Respimat 2.5-2.5 mcg/actuation mist 2 puff inhalation DAILY omeprazole 40 mg capsule,delayed release(DR/EC) 40 mg PO DAILY Qty: 90 1RF acetaminophen [Tylenol] 325 mg Tablet 325 mg PO Q6H PRN (Reason: Pain) Referrals / Follow Up: Nick Roper MD [Primary Care Provider] - Disposition Disposition (needs filled in before D/C Order can be placed): Home, Self Care
--- NOTE | 2022-11-02 08:17 | PCM.HP.BLA ---
History and Physical Date of Admission: 11/02/22 Chief Complaint: Update H&P, surgery scheduled 11/02 Sales Promotion Coordinator Required: No Is patient in pain?: No Allergies amoxicillin [Amoxicillin] Allergy (Verified 10/23/22 08:59) Swellingwool Adverse Reaction (Verified 10/23/22 08:59) Hives Medications omeprazole 40 mg capsule,delayed release 40 mg PO DAILY #90 caps 05/09/22 [Rx Confirmed 06/12/22] acetaminophen 325 mg tablet (Tylenol) 325 mg PO Q6H PRN Pain 06/12/22 [History Confirmed 06/12/22] albuterol sulfate 90 mcg/actuation aerosol inhaler 2 puff inhalation Q6H PRN 10/23/22 [History Confirmed 10/23/22] tiotropium 2.5 mcg-olodaterol 2.5 mcg/actuation mist for inhalation (Stiolto Respimat) 2 puff inhalation DAILY 10/23/22 [History Confirmed 10/23/22] PFSH Medical History? Anxiety Arthritis Back pain Chronic cough Diverticulosis Gastric reflux Gastritis due to nonsteroidal anti-inflammatory drug History of diverticulitis History of steroid therapy Hx of ovarian cyst Leg cramps Marijuana use Migraine headache Osteoarthritis Smoker Wears dentures Wears glasses Surgical History? History of arthroscopy of right knee History of colonoscopy History of tubal ligation Hx of bladder repair surgery Family History? Father DiabetesMother Colon cancer Heart disease Myocardial infarction Social History? Smoking Status:? Current every day smoker tobacco type: cigarettes alcohol intake:? current alcohol intake frequency: holidays/special occasions only substance use type:? marijuana HPI HPI Surgical H&P: Yes HPI: Patient is a 52 y/o F I am seeing for an update history and physical for an upcoming elective hemorrhoidectomy with Dr. Mason. Patient denies any recent hospitalizations or illnesses. She was scheduled last June for this procedure and tested positive for COVID. She notes no residual symptoms from COVID are noted. She is currently working with her PCP in regards to COPD. She was placed on 2 inhalers since her last visit. She was also tested for sleep apnea. She does not have a bipap machine as of yet. She notes she is waiting on results. Patient notes her rectal bleeding has decreased. She notes it is not as significant as before.? ? ? Patient's previous history per Dr. Mason: 51-year-old female being referred by Dr. Nick Roper because of blood in her stool and a written copy my surgical consult recommendations will return to him.? Patient also has indigestion and heartburn for which she routinely uses [id number] medicine.? She states that colonoscopy at age 14 but none since.? She states maybe an upper endoscopy 7 or 8 years ago for her indigestion.? She has been having episodes of spontaneous bright red blood per rectum for at least the past 2 years.? She has an aunt who had colon cancer and her mother had uterine cancer.? The patient's also been having some intermittent vaginal spotting.? 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 She has not had any abdominal pain.? She is a chronic lifelong cigarette smoker and continues to smoke.? As of April 13, 2022 white count was 7.2 with a hemoglobin 15.1 hematocrit 45 platelet count 286,000 and a normal differential. She is not on any anticoagulant.? She does take acetaminophen on a as needed basis. Patient is a 51 y/o F I am seeing s/p EGD and colonoscopy. Dr. Mason performed an upper and lower endoscopy on 05/09/22. Findings included: LA Grade A (one or more mucosal breaks less than 5 mm, not extending ?? ? between tops of 2 mucosal folds) esophagitis with no bleeding was found ?? ? 38 cm from the incisors. Biopsies were taken with a cold forceps for ?? ? histology. ?? ? The Z-line was irregular and was found 38 cm from the incisors. ?? ? A small hiatal hernia was present. ?? ? Diffuse mildly erythematous mucosa without bleeding was found in the ?? ? gastric antrum. Biopsies were taken with a cold forceps for histology. ?? ? Localized moderate inflammation characterized by congestion (edema) was ?? ? found in the duodenal bulb. Biopsies were taken with a cold forceps for ?? ? histology. The digital rectal exam findings include non-thrombosed external ?? ? hemorrhoids, non-thrombosed internal hemorrhoids and internal ?? ? hemorrhoids that prolapse with straining, but require manual replacement ?? ? into the anal canal (Grade III). ?? ? Multiple diverticula were found in the entire colon. Pathology demonstrated acute and chronic inflammation with mild congestion and hemorrhage. Mild gastritis. Chronic inflammation of the GE junction. Patient notes she has been having rectal bleeding with every bowel movement. She voices she is ready for surgical intervention for her hemorrhoids. Patient also notes she has been taking her omeprazole which has improved her symptoms. ROS General General: No weight change, appetite, fatigue, colon cancer, breast cancer or weakness HEENT HEENT: No difficulty swallowing, eye injury, eye surgery, swollen glands or hoarseness Endo Endocrine: No thyroid disease, diabetes mellitus, thyroid cancer, Hair loss, heat intolerance or cold intolerance Skin Skin: No rash or changing moles Musc Musculoskeletal: Yes arthritis; No back problems, rheumatoid arthritis, gout or joint pain Cardio Cardiovascular: No murmur, pacemaker, heart disease, atrial fibrillation, high blood pressure, heart attack, heart stent, palpitations, shortness of breat with exertion or chest pain Psych Psychiatric: Yes anxiety; No depression or hearing voices Resp Respiratory: Yes shortness of breath, No sleep apnea, No cough, No COPD, No asthma, No emphysema and No wheezing Gastro Gastrointestinal: No abdominal pain, No nausea or vomiting, No diarrhea, No constipation, Yes blood in stool, Yes acid reflux, Yes hemorrhoids, No ulcers, No gallbladder problem and No black,tarry stools Alfredo Hematologic: No blood thinners, No blood disorders, No bleeding, No anemia and No blood clots Neuro Neurologic: No system reviewed and no additional complaints, except as documented, No as per HPI, No abnormal gait, No abnormal hearing, No abnormal movements, No abnormal speech, No behavioral changes, No burning sensations, No confusion, No convulsions, No disequilibrium, No dizziness, No localized weakness, No frequent falls, No headache(s), No lack of coordination, No loss of vision, No memory loss, No numbness, No other visual disturbances, No radicular pain, No restless legs, No sensory deficit, No syncope, No tingling, No tremor(s), No weakness and No other Exam Const General: cooperative, healthy appearing, comfortable and no acute distress [facility] Head: normal to inspection Eyes General: appearance normal, both eyes and all related structures Neck Neck: normal visual inspection Neck mass: No Resp Effort & Inspection: normal respiratory effort Auscultation: clear to auscultation bilaterally Cardio Rate: regular rate Rhythm: regular rhythm GI Inspection: normal to inspection Palpation: soft Musc Cervical Spine: normal cervical lordosis Skin General: no rashes or lesions noted Neuro General: no focal motor deficits and CN's II-XI intact bilaterally Extrem General: normal to inspection Psych Appearance: grossly normal Affect: normal affect Assessment and Plan Assessment and Plan (1) Internal hemorrhoids: ?Status:?Acute ?Plan: Dr. Mason will plan to perform a surgical hemorrhoidectomy for significant internal hemorrhoids. Procedure details, risks and benefits have been explained. Patient has had the opportunity to ask and have questions answered. Patient verbally understands and agrees with the plan. I have examined the patient and the H&P has been reviewed. There are no clinical changes since date of exam. Eddy Mason M.D., F.A.C.S.
[2022-11-02] MEDS: Clindamycin 900 MG/50 ML BAG 75 MG IV (08:52)
[2022-11-02] MEDS: Lubricating Jelly 60 GM Tube 30 GM (09:14)
[2022-11-02] MEDS: Dibucaine 30 GM Tube 1 APPLIC (09:20)
[2022-11-02] MEDS: Bupivacaine 0.25% 30 ML Vial (09:20)
[2022-11-02] MEDS: BUPIVACAINE LIPOSOME/PF 20 ML VIAL OPERA.SITE (09:20)
--- NOTE | 2022-11-02 09:25 | HEM_PTH ---
PATIENT: JANIS GARDNER LOC: [facility] [place] U#:[id number] AGE/SX: 52/F ROOM: RE11/02/[address]: Dr. Eddy Mason MD : 1970 BED: DIS: 11/02/2022 SPEC #: [id number] RECD: 11/02/22 13:00 STATUS: TAYLOR DEENA #: [id number] SOHA: 11/02/22 09:[address]: Eddy Mason DEPT: SURGICAL PATHOLOGY RECD BY: Magnolia Jacinto ENTERED: 11/02/22 13:30 SP TYPE: HEMORRHOID OTHR DR: Dr. Nick Roper MD Tissues: HEMORRHOIDS Procedures: Surgery Specimen Level III HEADER OPERATION: Hemorrhoidectomy PRE-OP DIAGNOSIS: Hemorrhoids TISSUE SUBMITTED: Hemorrhoids MICROSCOPIC DIAGNOSIS Hemorrhoids, hemorrhoidectomy: Submucosal vascular ectasia and thrombosis consistent with hemorrhoids. AM:jony 11/03/2022 MICROSCOPIC DESCRIPTION Slides are reviewed. GROSS DESCRIPTION Received in fixative is one container labeled with the patient's name and designated hemorrhoid. The specimen consists of three variable sized pieces of mucosal tissue measuring in aggregate 3.5 x 3.0 x 1.0 cm. Sections reveal congested and hemorrhagic cut surfaces. Biomedical Engineering Aide sections are submitted in two cassettes. / SJ:rg 11/02/2022 TC:5 CPT: 09660
--- NOTE | 2022-11-02 09:46 | OP.PCM_ITS ---
Report of Operation Date of Procedure: 11/02/22 Pre-Operative Diagnosis: Bleeding internal and external hemorrhoids Post-Operative Diagnosis: Same Surgery/Procedure Performed:: 3 column surgical hemorrhoidectomy Description of Surgical Findings:: Timeout and informed consent was obtained. 52-year-old female was taken to the operating room underwent general endotracheal ovation the tissue was then placed prone jackknife on the table care for shoulder and pelvic rolls were provided she received 900 mg of clindamycin intravenously the buttock area was taped and then prepped with Betadine. Inspection revealed significant internal and ex ternal components left mid lateral right anterior lateral and right posterior lateral speculum was inserted the left lateral hemorrhoid was addressed first and apical suture of 0 Vicryl placed then 2-0 chromic suture was placed harmonic scalpel was used to excise the common taking great care to avoid the sphincter mechanism the mucosa was approximated with a running locking suture of 2-0 chromic. Similar procedures were performed right anterior lateral and right posterior lateral. Good excision of bulky disease was achieved. Digital palpation demonstrated a marked diminishment in the amount of hemorrhoidal disease and yet still a patent lumen. The perianal tissues were anesthetized with 20 cc of Exparel mixed with 25 cc of 0.25% Marcaine. A Dibucaine treated Vaseline gauze was placed inside the anus followed by cover dressings. Sponge and instrument and needle counts were reported to the surgeon to be correct. Specimens hemorrhoids. Drains Vaseline gauze. Blood loss minimal. The patient was taken to the recovery room in satisfactory addition without apparent complication Eddy Mason M.D., F.A.C.S. Surgeon: Eddy Mason Type of Anesthesia: General
[2022-11-02 10:01] VITALS: BP 107/66; BP 126/78; PULSE 116; RESP 16; TEMP 36.3; O2SAT 95
[2022-11-02 10:15] VITALS: BP 107/66; BP 120/79; PULSE 109; RESP 16; O2SAT 95
[2022-11-02 10:31] VITALS: BP 107/66; BP 113/53; PULSE 100; RESP 16; TEMP 36.6; O2SAT 94
[2022-11-02] MEDS: HYDROcodone Bitartrate/Apap 5/325 Tablet PO (11:01)
[2022-11-02 11:36] VITALS: BP 107/66; BP 119/66; PULSE 106; RESP 16; TEMP 36.6; O2SAT 99
== END 2022-11-02 12:05 | disposition home or self-care (01) ==
LOC: SDC 07:28 → AC 07:29
PROVIDERS: PCP Family Medicine; Referring Provider Surgery; Visit Provider Surgery
PROC: (CPT 46260; principal; 2022-11-02 09:10)
DX: K64.2 Third degree hemorrhoids (principal); J44.9 Chronic obstructive pulmonary disease, unspecified; K64.4 Residual hemorrhoidal skin tags; K21.9 Gastro-esophageal reflux disease without esophagitis; F17.210 Nicotine dependence, cigarettes, uncomplicated
CPT/HCPCS: 46260; 00902; 88304; J7120; J2405

== ENCOUNTER → 2023-02-05 | Outpatient (CLI) | payer MEDICAID, SELFPAY | END | disposition home or self-care (01) | LOC: SL 20:22 | PROVIDERS: PCP Family Medicine | DX: R06.83 Snoring (principal); G47.10 Hypersomnia, unspecified; R06.81 Apnea, not elsewhere classified | CPT/HCPCS: 95810 ==

== ENCOUNTER → 2023-04-06 | Outpatient (CLI) | payer MEDICAID, SELFPAY ==
[2023-04-12 22:06] LABS: HPV APTIMA, High Risk Positive (Negative); HPV Genotype 16, Aptima Negative (Negative); HPV Genotype 18,45 Aptima Negative (Negative)
== END | disposition home or self-care (01) ==
LOC: LABSPEC 10:58
PROVIDERS: PCP Family Medicine; Visit Provider Obstetrics & Gynecology
DX: Z12.4 Encounter for screening for malignant neoplasm of cervix (principal)
CPT/HCPCS: 87624; 88175; G0145

== ENCOUNTER → 2023-04-09 | Outpatient (CLI) | payer MEDICAID, SELFPAY | END | disposition home or self-care (01) | LOC: OPBI 07:03 | PROVIDERS: PCP Family Medicine; Referring Provider Obstetrics & Gynecology; Visit Provider Obstetrics & Gynecology | DX: Z12.31 Encounter for screening mammogram for malignant neoplasm of breast (principal) ==

== ENCOUNTER → 2023-04-12 | Outpatient (CLI) | payer MEDICAID, SELFPAY ==
--- NOTE | 2023-04-12 | EMB_PTH ---
PATIENT: JANIS GARDNER LOC: [facility] U#:[id number] AGE/SX: 52/F ROOM: RE04/12/[address]: Dr. Maribel Fernandez DO : 1970 BED: DIS: 04/12/2023 SPEC #: [id number] RECD: 04/12/23 10:33 STATUS: TAYLOR REJim #: [id number] SOHA: 04/12/23 00:[address]: Maribel Fernandez DEPT: SURGICAL PATHOLOGY RECD BY: Magnolia Jacinto ENTERED: 04/12/23 11:20 SP TYPE: ENDOM BX/C ANDERSON DR: Dr. Nick Roper MD Tissues: Endometrium, NOS Procedures: Surgery Specimen Level IV HEADER OPERATION: Endometrial biopsy PRE-OP DIAGNOSIS: N93.9 TISSUE SUBMITTED: Endometrial biopsy MICROSCOPIC DIAGNOSIS Endometrium, biopsy: Strips of benign superficial endometrial and endocervical mucosa. AM:jony 04/13/2023 MICROSCOPIC DESCRIPTION Slides are reviewed. GROSS DESCRIPTION Received is one container labeled with the patient's name and not further designated. The specimen consists of multiple fragments of hemorrhagic soft tissue that in aggregate measure 1.0 x 1.0 x 0.1 cm. The specimen is totally submitted in one cassette. / SJ:jony 04/12/2023 TC:5 CPT: 80977
== END | disposition home or self-care (01) ==
PROVIDERS: PCP Family Medicine; Visit Provider Student in an Organized Health Care Education/Training Program
DX: N93.9 Abnormal uterine and vaginal bleeding, unspecified (principal)
CPT/HCPCS: 88305

== ENCOUNTER → 2023-04-23 | Outpatient (CLI) | payer MEDICAID, SELFPAY ==
--- NOTE | 2023-04-23 08:53 | BI_ITS ---
MAMMOGRAPHY - UNILATERAL DIAGNOSTIC: LEFT BREAST REASON FOR EXAM: Female, 52 years old. Abnormal screening mammogram. PERTINENT HISTORY: Non-contributory. TECHNIQUE: Compression spot views of the left breast as well as a 90 degree lateral view of the left breast were obtained. CAD: Full Field Digital Mammography with Computer Added Detection was performed. COMPARISON: Comparison is made with prior outside examination of March 26, 2023. FINDINGS: Breast Composition: There are scattered areas of fibroglandular density. There are no dominant masses or suspicious calcifications. Stable small benign-appearing left axillary lymph nodes. No other significant abnormalities are identified. BI/DIAG MAMM W/CAD, UNILAT IMPRESSION: Negative unilateral diagnostic mammogram. Yearly followup mammogram recommended. (A) ASSESSMENT CATEGORY: BIRADS Category 2: Benign. A letter regarding these results will be sent to the patient by the facility within 30 days. Approximately 10% of breast cancers are not detected by mammography. A normal mammogram should not delay biopsy of a clinically suspicious abnormality. Electronically Signed: Eric Oliva MD at 10:40 EDT ,
== END | disposition home or self-care (01) ==
LOC: OPBI 08:51
PROVIDERS: PCP Family Medicine; Referring Provider Family Medicine; Visit Provider Family Medicine
DX: R92.8 Other abnormal and inconclusive findings on diagnostic imaging of breast (principal)
CPT/HCPCS: 77065

== ENCOUNTER → 2024-04-10 | Outpatient (CLI) | payer MEDICAID, SELFPAY ==
--- NOTE | 2024-04-10 10:45 | BI_ITS ---
MAMMOGRAPHY - BILATERAL SCREENING REASON FOR EXAM: Female, 53 years old. Routine annual screening examination. PERTINENT HISTORY: Non-contributory. TECHNIQUE: Digital bilateral breast mariana (3D mammographic acquisition) in the CC and MLO projections. 2-D mediolateral oblique (MLO) and craniocaudad (CC) views of both breasts were obtained. CAD: Full Field Digital Mammography with Computer Added Detection was performed. COMPARISON: Comparison is made with prior outside examination dated March 26, 2023 and April 23, 2023. FINDINGS: Breast Composition: There are scattered areas of fibroglandular density. There are no dominant masses or suspicious calcifications. Stable small benign-appearing bilateral axillary lymph nodes. No other significant abnormalities are identified. There has been no significant change since the prior study. BI/SCRN MAMM (CAD)W/MARIANA BILAT IMPRESSION: Stable bilateral screening mammogram. Yearly follow-up mammogram recommended. (A) ASSESSMENT CATEGORY: BIRADS Category 2: Benign. A letter regarding these results will be sent to the patient by the facility within 30 days. Approximately 10% of breast cancers are not detected by mammography. A normal mammogram should not delay biopsy of a clinically suspicious abnormality. [id number] Electronically Signed: Eric Oliva MD at 12:04 EDT ,
== END | disposition home or self-care (01) ==
LOC: OPBI 10:44
PROVIDERS: PCP Family Medicine; Referring Provider Family Medicine; Visit Provider Family Medicine
DX: Z12.31 Encounter for screening mammogram for malignant neoplasm of breast (principal)
CPT/HCPCS: 77063; 77067

== ENCOUNTER 2024-08-25 01:57 | Emergency (ER) | payer MEDICAID, SELFPAY ==
[2024-08-25 01:58] VITALS: PULSE 111; RESP 25; TEMP 36.9; O2SAT 96; BMI 36.1
[2024-08-25 02:01] VITALS: BP 109/76
--- NOTE | 2024-08-25 02:03 | EDS_ITS ---
HPI History of Present Illness Chief Complaint: Other, Pain/Inj PFSH PFSH Medical History (Updated 08/25/24 @ 04:[address] Bobby Sharpe, DO) Low iron Back pain History of diverticulitis Gastric reflux Chronic cough Wears glasses Wears dentures Marijuana use Arthritis Migraine headache Smoker Leg cramps Hx of ovarian cyst Gastritis due to nonsteroidal anti-inflammatory drug Diverticulosis Anxiety Osteoarthritis Home Medications ?Medication ?Instructions ?Recorded ?Last Taken ?Type albuterol sulfate 90 mcg/actuation 2 puff inhalation Q6H PRN ASTHMA 10/23/22 Unknown History aerosol inhaler tiotropium 2.5 mcg-olodaterol 2.5 2 puff inhalation DAILY 10/23/22 Unknown History mcg/actuation mist for inhalation (Stiolto Respimat) oxycodone 5 mg tablet 5 mg PO Q6H PRN pain 3 days #12 08/25/24 Unknown Rx tabs Allergy/AdvReac Type Severity Reaction Status Date / Time amoxicillin (Amoxicillin) Allergy Swelling Verified 08/25/24 01:57 ibuprofen (From Motrin) AdvReac Bleeding Verified 08/25/24 02:23 wool AdvReac Hives Verified 08/25/24 01:57 Family History Father Diabetes Mother Colon cancer Heart disease Myocardial infarction Surgical History History of colonoscopy Hx of bladder repair surgery History of tubal ligation History of arthroscopy of right knee Social History Smoking Status: Current every day smoker tobacco type: cigarettes alcohol intake: current alcohol intake frequency: holidays/special occasions only substance use type: marijuana EXAM Physical Exam Const Vital Signs: 08/25/24 01:58 08/25/24 02:00 08/25/24 02:01 Temperature 98.4 F Temperature Source Oral Pulse Rate 111 H Respiratory Rate 25 H Respiratory Effort Normal Respiratory Pattern Normal Blood Pressure 109/76 Blood Pressure Mean 87 Pulse Ox 96 Oxygen Delivery Method Room Air MDM MDM MDM Narrative Medical decision making narrative: HISTORY OF PRESENT ILLNESS: 53-year-old female presents with right groin pain for the last 2 days. She notes began Sunday morning. She further states she had no inciting event. No falls or other injury. No urinary complaint. No abdominal pain. No vomiting. No change in bowel habits. Notes pain is worse with hip flexion as well as hip adduction. REVIEW OF SYSTEMS: Pertinent positives: Right groin/hip pain Pertinent negatives: As per HPI PHYSICAL EXAM: Nursing triage notes reviewed, Vital signs reviewed Constitutional: please see [facility] Lungs: Clear to auscultation, No wheezing or rales. No increased work of br eathing, no conversational dyspnea, no accessory muscle use, no nasal flaring. No respiratory distress noted Heart: Regular rate and rhythm, No murmurs, No rubs and No gallops, 2+ distal pulses (radial, femoral, posterior tibial) in all extremities Abdomen: Soft, there is no tenderness, rigidity, rebound or guarding, no obvious peritoneal signs, no palpable pulsatile abdominal masses, no auscultated abdominal bruit. No hernia noted : No CVAT, external genital exam performed advertising assistant manager in room showed no obvious genital abnormalities. No evidence of Bartholin cyst, infections, crepitus, bul lae. Pelvis: TTP right groin. TTP with internal rotation of the hip. Tenderness with hip flexion or hip abduction. Extremities: No edema, compartments are soft Neuro: Intact sensation L1-S1 dermatomal distributions. Intact 5/5 strength in hip flexion (T12-L3). Knee extension (L2-L4). Ankle dorsiflexion (L4-L5). Ankle plantar flexion (S1). Great toe extension (L5). 2+ patellar and Achilles DTRs. Skin: No rash or lesions noted MEDICAL DECISION MAKING: Chief Complaint: Right groin pain External records reviewed: Reviewed prior imaging studies Factors affecting care: none Social determinants of health: none History obtained from others: none Consults: none [facility] Narrative: Initial Exam unremarkable for signs of abnormalities, hernia, intra-abdominal abnormality. Concern for musculoskeletal etiology. Exam most consistent with quadriceps/adductor muscle strain however obtained an x-ray to rule out any bony abnormality. ALL IMAGES (IF OBTAINED) HAVE BEEN PERSONALLY REVIEWED AND INTERPRETED BY MYSELF. X-ray was read and reviewed person myself showed no evidence obvious bony abnormality. I suspect patient suffering from right quadriceps and hip adductor muscle strain. Will give Tylenol ibuprofen instructions. A short course of narcotics. Will give close PCP follow-up. Strict return precautions were discussed. The patient and/or family, caregivers express understanding. The patient and/or family, caregivers agrees with the plan. Shared decision making: I will have a discussion with the patient and or visitors regarding risk/benefits of further testing or admission. They will be made aware of of the risk/benefits inherent in this decision they will be given the opportunity to voice understanding. Total critical care time today provided was at least 0 minutes. This excludes separately billable procedures. Critical care time (if documented) is secondary to the patient having high probability of clinically significant/life threatening deterioration in the patient's condition which required my urgent intervention. Impression: 1. Acute right hip pain 2. Quadriceps muscle strain Dispo: Discharge home This note was generated with [employer] dictation software. It may contain incorrect words, spelling, and punctuation that were not noted in review of the chart prior to signing. Radiography Diagnostic Testing: Clinical Impression(s) from Imaging Studies Hip/Pelvis X-Ray 08/25/24 02:45 IMPRESSION: Calcification superior to the greater trochanter may represent calcific tendinopathy or may represent a soft tissue calcification. No acute abnormality. Electronically Signed: Nick Mccarthy DO at 4:10 EST , Discharge Plan Triage Chief Complaint: Other, Pain/Inj ED Provider: Bobby Sharpe Dx/Rx/DC Orders Instructions: ED Groin Strain Prescriptions: New oxycodone 5 mg tablet 5 mg PO Q6H PRN (Reason: pain) 3 Days Qty: 12 0RF No Action albuterol sulfate 90 mcg/actuation HFA aerosol inhaler 2 puff inhalation Q6H PRN (Reason: ASTHMA) Stiolto Respimat 2.5-2.5 mcg/actuation mist 2 puff inhalation DAILY Stand Alone Forms: Work / School Excuse Primary Care Provider: Nick Roper Referrals: Nick Roper MD [Primary Care Provider] - Activity Restrictions/Additional Instructions: Thank you for trusting us with your care today! Your images did not show any evidence of bony abnormality. I suspect your s ymptoms are related to muscle strain. Please take Tylenol (2 pills, 650 mg), ibuprofen (2 pills, 400 mg) every 6 hours as needed for pain and fever control. I prescribed a short course of oxycodone which is narcotic pain medicine. Please take as needed for breakthrough pain. Please return to the emergency department if your symptoms change or worsen. Please follow with your primary care physician for further outpatient evaluation and management. Print Language: Swazi Disposition Disposition: Home, Self Care Discharge Date/Time: 08/25/24 04:27
[2024-08-25] MEDS: Ibuprofen 200 MG Tablet 400 MG PO (02:20)
[2024-08-25] MEDS: oxyCODONE 5 MG Tablet PO (02:20)
--- NOTE | 2024-08-25 02:45 | RAD_ITS ---
INDICATION: right hip pain, right groin pain EXAMINATION/TECHNIQUE: X-RAY - RIGHT XR Hip Unilateral with Pelvis when performed; 2-3 Views COMPARISON: None. FINDINGS: SOFT TISSUES: Small smooth calcification superior to the greater trochanter. BONES/JOINTS: No fracture or dislocation. No significant degenerative changes. No erosive changes. RAD/HIP, UNI W/ Pelvis 2-3 Views IMPRESSION: Calcification superior to the greater trochanter may represent calcific tendinopathy or may represent a soft tissue calcification. No acute abnormality. Electronically Signed: Nick Mccarthy DO at 4:10 EST ,
== END 2024-08-25 04:27 | disposition home or self-care (01) ==
PROVIDERS: Emergency Provider Emergency Medicine; PCP Family Medicine; Visit Provider Emergency Medicine
DX: S76.111A Strain of right quadriceps muscle, fascia and tendon, initial encounter (principal); M25.551 Pain in right hip; X58.XXXA Exposure to other specified factors, initial encounter; F17.210 Nicotine dependence, cigarettes, uncomplicated; Z88.0 Allergy status to penicillin
CPT/HCPCS: 73502; 99282

== ENCOUNTER 2024-09-18 14:31 | Emergency (ER) | payer MEDICAID, SELFPAY ==
[2024-09-18 14:32] VITALS: BP 130/73; PULSE 93; RESP 18; TEMP 36.1; O2SAT 95; BMI 36.1
--- NOTE | 2024-09-18 15:19 | CT_ITS ---
PROCEDURE: CT CERVICAL SPINE WITHOUT CONTRAST REASON FOR EXAM: Neck pain. Patient fell 1 week ago. Increasing pain. TECHNIQUE: Contiguous axial scans of 2.5 mm slice thicknesses without intravenous contrast. Sagittal and coronal reconstruction images were also obtained. One or more dose reduction techniques were used (e.g., Automated exposure control, adjustment of the mA and/or kV according to patient size, use of iterative reconstruction technique). COMPARISON: None. FINDINGS: Alignment: Normal C1-C2: Stable. No fractures. Minor degenerative change. Vertebrae: No acute fracture. Minor spondylosis anteriorly at C4 through C7. Disc: Mild narrowing of the C5-6 interspace. Remaining interspaces normal in height. Facets: Mild bilateral facet arthropathy at C2 through C4. Foramens: No foraminal narrowing. Soft tissues: Unremarkable. CT/Spine Cervical without Contras IMPRESSION: 1. Mild facet arthropathy, C2 through C4. 2. Minor spondylosis. 3. No acute osseous findings. 4. Mild degenerative disc disease at C5-C6. One or more dose reduction techniques were used (e.g., Automated exposure contr ol, adjustment of the mA and/or kV according to patient size, use of iterative reconstruction technique). Reading Location: [facility]
--- NOTE | 2024-09-18 15:20 | EDS_ITS ---
HPI History of Present Illness Chief Complaint: Other, Pain/Inj Narrative Narrative: Chief complaint and HPI: Neck pain. 53-year-old female with past medical history of gastritis, osteoarthritis presents for evaluation of neck pain after a fall. Patient states on Sunday she slipped on ice and fell on a sidewalk. She fell backwards. Did not hit her head. No LOC. Patient states since the fall she has been having neck pain, mostly on the left. She denies any numbness or tingling. Denies any weakness. States she has been taking Tylenol as well as arthritis cream as she cannot take ibuprofen given her gastritis. Patient states her pain has not improved so she called her PCP who told her to present to the emergency room for CT neck. Review of systems: See HPI Medications: As listed on the chart Allergies: As listed on the chart PFSH: Per chart Vital signs: As listed on the chart. Reviewed. Physical exam: Gen: A&O x3, NAD Head: Normocephalic, atraumatic, no Olivares sign Eyes: No sclera icterus, conjunctiva clear, PERRL, EOMI, no raccoon eyes ENT: TMs clear BL, moist mucous membranes, no swelling/lacerations/blood in the mouth or the nares, No nasal septal hematoma, no facial tenderness Neck: Trachea midline, No JVD, no midline spinal tenderness, no bony step-offs, full range of motion, patient has mild tenderness to palpation of the paraspinal musculature of the left cervical spine as well as mostly in the left trapezius distribution. CV: RRR, no murmurs, no chest wall TTP Resp: Lungs CTA BL, no w/r/c GI: Abd soft, non-distended, non-tender, no r/r/g Musc: Full ROM, no deformity, no spinal TTP, no priscila step-offs Skin: Warm, dry, intact Neuro: Alert, oriented, grossly intact, sensation intact, GCS 15 Psych: Cooperative, appropriate mood and affect [facility] Medical History (Updated 09/18/24 @ 17:[address] Brando Pearson, ) Low iron Back pain History of diverticulitis Gastric reflux Chronic cough Wears glasses Wears dentures Marijuana use Arthritis Migraine headache Smoker Leg cramps Hx of ovarian cyst Gastritis due to nonsteroidal anti-inflammatory drug Diverticulosis Anxiety Osteoarthritis Home Medications ?Medication ?Instructions ?Recorded ?Last Taken ?Type albuterol sulfate 90 mcg/actuation 2 puff inhalation Q 6H PRN ASTHMA 10/23/22 Unknown History aerosol inhaler tiotropium 2.5 mcg-olodaterol 2.5 2 puff inhalation DA ALBIN 10/23/22 Unknown History mcg/actuation mist for inhalation (Stiolto Respimat) oxycodone 5 mg tablet 5 mg PO Q6H PRN pain 3 days #12 08/25/24 Unknown Rx tabs cyclobenzaprine 5 mg tablet 5 mg PO TID PRN muscle spa sm 3 09/18/24 Unknown Rx days #9 tabs Allergy/AdvReac Type Severity Reaction Status Date / Time amoxicillin (Amoxicillin) Allergy Swelling Verified 09/18/24 14:32 ibuprofen (From Motrin) AdvReac Bleeding Verified 09/18/24 14:32 wool AdvReac Hives Verified 09/18/24 14:32 Family History Father Diabetes Mother Colon cancer Heart disease Myocardial infarction Surgical History History of colonoscopy Hx of bladder repair surgery History of tubal ligation History of arthroscopy of right knee Social History (Updated 09/18/24 @ 15:03 by Dimple Mcnamara) household members: spouse housing: house Smoking Status: Current every day smoker tobacco type: cigarettes alcohol intake: current alcohol intake frequency: holidays/special occasions only substance use type: marijuana EXAM Physical Exam Const Vital Signs: 09/18/24 14:32 09/18/24 15:03 Temperature 97 F L Temperature Source Temporal Pulse Rate 93 Respiratory Rate 18 Respiratory Effort Normal Non-Labored Respiratory Pattern Normal Blood Pressure 130/73 H Blood Pressure Mean 92 Pulse Ox 95 Oxygen Delivery Method Room Air MDM MDM MDM Narrative Medical decision making narrative: 53-year-old female with past medical history of gastritis, osteoarthritis presents for evaluation of neck pain after a fall. Onset of injury was Sunday. Patient has no neurological deficits. She has no midline spinal tenderness. Is mildly tender in muscular distribution. Per [facility] C-spine rule patient does not require any imaging of her C-spine. I have a very low suspicion for fracture. I did explain this to the patient. I explained to her that I think her pain is likely secondary to muscle spasms. She states her physician specifically sent her here for CT of the neck and therefore is requesting this to be performed. This was ordered. I do think patient would benefit from muscle relaxers however patient drove to the ER today therefore she will not receive muscle relaxers here in the emergency department but will receive a prescription for home. CT cervical spine shows mild facet arthropathic a C2-C4. Final spondylosis. Mild degenerative disc disease at C5-C6. No fracture or dislocation. Patient's pain is likely secondary to neck strain versus spasm. Patient updated of all the results and confirmed understanding of plan. Patient stable to discharge home. Was given prescription for Flexeril. Impression: 1. Neck strain/spasm 2. Mechanical fall 3. Mild facet arthropathic a C2-C4. Minor spondylosis. Mild degenerative disc disease at C5-C6 Radiography Diagnostic Testing: Clinical Impression(s) from Imaging Studies Cervical Spine CT 09/18/24 15:19 IMPRESSION: 1. Mild facet arthropathy, C2 through C4. 2. Minor spondylosis. 3. No acute osseous findings. 4. Mild degenerative disc disease at C5-C6. One or more dose reduction techniques were used (e.g., Automated exposure control, adjustment of the mA and/or kV according to patient size, use of iterative reconstruction technique). Reading Location: [facility] Discharge Plan Triage Chief Complaint: Other, Pain/Inj ED Provider: Brando Pearson Dx/Rx/DC Orders Clinical Impression: Muscle spasms of neck Instructions: ED Muscle Spasm Prescriptions: New cyclobenzaprine 5 mg tablet 5 mg PO TID PRN (Reason: muscle spasm) 3 Days Qty: 9 0RF No Action albuterol sulfate 90 mcg/actuation HFA aerosol inhaler 2 puff inhalation Q6H PRN (Reason: ASTHMA) Stiolto Respimat 2.5-2.5 mcg/actuation mist 2 puff inhalation DAILY oxycodone 5 mg tablet 5 mg PO Q6H PRN (Reason: pain) 3 Days Qty: 12 0RF Stand Alone Forms: ED Work / School Excuse Primary Care Provider: Nick Roper Referrals: Nick Roper MD [Primary Care Provider] - 3-5 Days Activity Restrictions/Additional Instructions: Do not drive or operate heavy machinery while taking muscle relaxers. Follow-up with primary care physician. Print Language: Nigerien Disposition Disposition: Home, Self Care Discharge Date/Time: 09/18/24 17:55
== END 2024-09-18 17:55 | disposition home or self-care (01) ==
PROVIDERS: Emergency Provider Surgery; PCP Family Medicine; Referring Provider Surgery; Visit Provider Surgery
DX: S16.1XXA Strain of muscle, fascia and tendon at neck level, initial encounter (principal); W00.0XXA Fall on same level due to ice and snow, initial encounter; M62.838 Other muscle spasm; M46.92 Unspecified inflammatory spondylopathy, cervical region; M47.812 Spondylosis without myelopathy or radiculopathy, cervical region; M50.322 Other cervical disc degeneration at C5-C6 level; K29.70 Gastritis, unspecified, without bleeding; M19.90 Unspecified osteoarthritis, unspecified site; F17.210 Nicotine dependence, cigarettes, uncomplicated; J45.909 Unspecified asthma, uncomplicated; Z79.51 Long term (current) use of inhaled steroids; Z88.0 Allergy status to penicillin
CPT/HCPCS: 72125; 99282